=== PATIENT | female | born 1990 | race Caucasian/White ===

== ENCOUNTER 2024-09-20 10:44 | Outpatient (CLI) | payer SELFPAY ==
--- NOTE | ~2024-09-20 | US_ITS ---
Abdominal Sonogram: Real-time sonographic imaging of the abdomen was performed. Clinical History: Enlarged liver and spleen Findings: The liver appears normal in echotexture with no evidence of mass lesion or bile duct dilat ation. And measures 20.3 cm in length. Main portal vein demonstrates normal direction of flow. The sp wilson is normal in size without evidence of focal lesion. The gallbladder is well distended, and demo nstrates small gallbladder wall polyps measuring up to 5 mm. The common bile duct measures 3 mm. The visualized pancreas, aorta, and IVC are unremarkable. The right kidney measures 10.4 cm in length a nd the left kidney measures 10.3 cm. There is no hydronephrosis or renal calculus. Impression: Hepatomegaly. Small gallbladder wall polyps. Reviewed, dictated and finalized at [facility]. Impression: Hepatomegaly. Small gallbladder wall polyps.
== END 2024-09-20 10:45 | disposition home or self-care (01) ==
PROVIDERS: Visit Provider Chiropractor
DX: K76.9 Liver disease, unspecified (principal); K82.4 Cholesterolosis of gallbladder
CPT/HCPCS: 76700